=== PATIENT | female | born 1990 | race Caucasian/White ===

== ENCOUNTER → 2018-09-27 | Outpatient (CLI) | payer BC ==
[2013-12-25 10:30] VITALS: BP 106/71
[~2018-09-27] MED LIST: CETI10TA22 PO; NAPR-683 PO; OXYC1TAB15 PO
--- NOTE | 2018-09-27 12:03 | KCIC ---
MRI of the brain without contrast 09/27/2018 Clinical History: Dizziness. Migraine headaches. Lightheadedness. Abnormal CT scan of the head. Technique: Unenhanced T1-weighted sagittal and axial, T2-weighted axial and coronal and FLAIR, gradient echo and diffusion-weighted axial images of the brain were obtained. Findings: Comparison is made to the patient's CT scan of the head dated 09/07/2018. The left cerebral hemisphere is enlarged when compared to the right consistent with Hemimegalencephaly. This accounts for the lateral ventricular asymmetry seen on the patient's CT scan. No heterotopic smith matter is noted. Patchy areas of increased signal intensity are seen within the periventricular white matter of both cerebral hemispheres on the FLAIR and T2-weighted images which have a nonspecific MRI appearance. They may represent areas of minimal small vessel ischemic disease. They can be seen in patients with history of migraine headaches. No acute parenchymal abnormality is noted. No extra-axial fluid collection is seen. There is no MRI evidence of acute ischemia/infarction. Very mild mucosal thickening in seen scattered throughout the paranasal sinuses. Normal flow voids are seen within the major vascular structures surrounding the brain parenchyma. IMPRESSION: 1. 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 This accounts for the asymmetry of the lateral ventricles seen on the patient's recent CT. 2. No acute parenchymal abnormality is seen. Electronically signed by: Jean Paul Nugent MD (09/27/2018 12:01 PM) [id number]
== END | disposition home or self-care (01) ==
LOC: KCIC MRI 10:29
PROVIDERS: ATTEND Psychiatry & Neurology Neurology with Special Qualifications in Child Neurology
DX: G43.009 Migraine without aura, not intractable, without status migrainosus (principal); R42 Dizziness and giddiness
CPT/HCPCS: 70551